=== PATIENT | female | born 1960 | race Caucasian/White ===

== ENCOUNTER 2020-06-16 07:50 | Outpatient (REF) | payer OTHER, SELFPAY ==
--- NOTE | 2020-06-16 | MM_ITS ---
EXAMINATION: MR GUIDED VACUUM-ASSISTED CORE BIOPSY BREAST, LEFT (TWO SITES) MM DIGITAL MAMMOGRAPHY POST BIOPSY, LEFT CLINICAL INFORMATION: Prior history invasive ductal cancer with lobular features left breast 2018 status post lumpectomy at outside institution. Recent high risk MR screening demonstrates 2 findings left breast: new linear ductal non-mass enhancement near benign seroma inferior left breast; and a new 4 mm indistinct mass 10:00 position. Second look diagnostic ultrasound requested. COMPARISON: Second Look ultrasound 05/27/2020, digital breast tomosynthesis 09/12/2019, MR breasts without and with contrast 05/13/2020. TECHNIQUE/PROCEDURE: Informed consent was obtained from the patient after discussion of the benefits, risks, and alternatives to biopsy today. Patient appeared to understand. Gave opportunity for questions. Patient signed consent form. Biopsy is performed under MRI guidance using breast surface coil. Imaging is performed without and with use of 10 mL Gadavist gadolinium contrast. bunkersofa introducer localization system is used with grid. SITE A: LESION: New linear ductal non-mass enhancement near benign seroma inferior left breast. LOCAL ANESTHESIA: 7 mL 1% lidocaine; 11 mL 2% lidocaine with epinephrine. NEEDLE: [employer] 9-gauge vacuum assisted core biopsy device. APPROACH: Lateral medial. CORES: 14. CLIP: TriMark cylinder shaped. SITE B: Separate new biopsy supplies used for second site. LESION: New 4 mm indistinct enhancing focus 10:00 position. LOCAL ANESTHESIA: 7 mL 1% lidocaine; 11 mL 2% lidocaine with epinephrine. NEEDLE: [employer] 9-gauge vacuum assisted core biopsy device. APPROACH: Medial lateral. CORES: 8. CLIP: TriMark dumbell/spool shaped. POSTPROCEDURE UNILATERAL DIGITAL MAMMOGRAM: Mammography is performed using digital mammography in CC and ML views. There are scattered areas of fibroglandular density (ACR BI-RADS breast composition Category b). The biopsy clip markers are in position. There is no gross hematoma. The patient tolerated the procedure well. No immediate complications. Home instructions reviewed with the patient. Final pathology results are pending. IMPRESSION: 1. Status post MRI guided vacuum-assisted core biopsy left breast with clip placement (2 sites biopsied). 2. Final pathology results pending. An addendum report will be issued.
[2020-06-16] MEDS: Lidocaine HCl 1 % MPF 5 ML VIAL SUBCUT ×3 (11:42→11:44)
== END 2020-06-16 07:51 | disposition home or self-care (01) ==
LOC: HO.MRI 07:50
PROVIDERS: Visit Provider Surgery
DX: C50.912 Malignant neoplasm of unspecified site of left female breast (principal); R92.8 Other abnormal and inconclusive findings on diagnostic imaging of breast
CPT/HCPCS: 19085; 19086; 77065; 88305; A4648

== ENCOUNTER 2020-07-29 08:48 | Outpatient (REF) | payer OTHER, SELFPAY ==
[2020-07-29 09:26] LABS: COVID-19 Test Negative (Negative); IDNOW Serial# 55D5AD1C
== END 2020-07-29 08:49 | disposition home or self-care (01) ==
LOC: HO.EMPCOV 08:48
PROVIDERS: PCP Hospitalist; Visit Provider Internal Medicine
DX: Z20.828 Contact with and (suspected) exposure to other viral communicable diseases (principal)
CPT/HCPCS: 87635; C9803

== ENCOUNTER 2020-08-01 08:31 | Outpatient (REF) | payer OTHER, SELFPAY ==
[2020-08-01 08:48] LABS: COVID-19 Test Positive (Negative)
== END 2020-08-01 08:32 | disposition home or self-care (01) ==
LOC: HO.EMPCOV 08:31
PROVIDERS: PCP Family Medicine; Visit Provider Internal Medicine
DX: Z20.828 Contact with and (suspected) exposure to other viral communicable diseases (principal)
CPT/HCPCS: 87635; C9803

== ENCOUNTER 2021-06-17 15:51 | Outpatient (REF) | payer OTHER, SELFPAY ==
--- NOTE | ~2021-06-17 | MM_ITS ---
EXAMINATION: MM SCREENING DIGITAL BREAST TOMOSYNTHESIS, BILATERAL CLINICAL INFORMATION: Prior history left lumpectomy 2018 at outside institution for invasive ductal cancer with lobular features. More recent benign MR-guided left breast biopsy 2 sites 06/16/2020. Due for yearly. COMPARISON: Mammography: 06/16/2020, 09/12/2019, outside mammography 02/03/2018 ([facility]). TECHNIQUE: Digital breast tomosynthesis is performed in both the craniocaudal and mediolateral oblique views along with computer-aided detection (CAD). Synthesized 2D images are generated from the tomosynthesis. FINDINGS: There are scattered areas of fibroglandular density (ACR BI-RADS breast composition Category b). There are post therapy changes on the left with reduced breast size and scarring. There are 2 small oil cysts with rim calcification consistent with fat necrosis within the scar. There are 2 biopsy clip marker corresponding to the MR guided biopsy. The right breast has asymmetric density mid upper breast on MLO view, likely summation artifact. Patient will be recalled to confirm. Remainder of the right breast is unremarkable. MM/MM tomosynthesis screening BI IMPRESSION: 1. Right: Probable summation artifact mid upper breast on MLO view. 2. Left: Post therapy changes. No mammographic evidence of malignancy. ASSESSMENT: BI-RADS 0: Incomplete - Need Additional Imaging Evaluation RECOMMENDATION: 1. Additional views of the right breast (spot MLO, standard ML). 2. Targeted ultrasound if warranted after review of the additional views. 3. Radiology department staff will contact the patient for additional imaging. This patient's information was entered into a reminder system with a target due date for their next mammogram.
== END 2021-06-17 15:52 | disposition home or self-care (01) ==
LOC: HO.MAMMO 15:51
PROVIDERS: PCP Family Medicine; Visit Provider Family Medicine
DX: Z12.31 Encounter for screening mammogram for malignant neoplasm of breast (principal)
CPT/HCPCS: 77063; 77067

== ENCOUNTER → 2024-08-13 08:19 | Outpatient (REF) | payer MEDICARE, SELFPAY ==
--- NOTE | 2024-08-13 | CA_ITS ---
Acquisition Time: 2024-08-13 08:47:55 Total Exercise Time: 00:05:01 Test Indications: ABN EKG Medications: SEE H Protocol: RUDY Max HR: 160 BPM 103% of Pred: 154 BPM Max BP: 164/084 mmHG Max Work Load: 6.4 METS Exercise Stress test with exercise 5 mins 1 sec of Rudy Protocol, achieving 103% MPHR, with reports of moderate SOB, no chest discomfort or palpitations, with isolated PACs and frequent PVCs, with normotensive response to exercise. Without EKG changes meeting criteria for ischemia. In recovery, SOB resolved. Nuclear images pending. Test reviewed with dr. Lin. Note: Test originally ordered as a pharmacological nuclear stress test - Pt is able to exercise on treadmill so test changed to exercise nuclear stress test. Referred By: Vandana Rich Overread By: RADHA BOLDEN
--- NOTE | ~2024-08-13 | NM_ITS ---
EXERCISE MYOCARDIAL PERFUSION STUDY INDICATION: Abnormal EKG TECHNIQUE: The patient was brought in for an exercise perfusion study on 08/13/2024. Patient performed exercise as per Rosales protocol and was injected 30 mCi of sestamibi once target heart rate was achieved. Images were obtained using the SPECT gamma camera interlaced with the gating device. Images were obtained in supine position. Resting perfusion study was performed on 08/15/2024. Patient was administered 30 mCi of sestamibi intravenously at rest. Images were then obtained in supine position. Total DLP 81 mGy-cm. Images were processed with the software and compared side to side in short axis, horizontal long axis and vertical long axis views. FINDINGS: Raw aquisition reviewed. The stress perfusion study showed no significant perfusion abnormality. Both uncontrasted CT attenuation corrected images were reviewed. The gated study shows normal LV systolic function with calculated LVEF of 74%. LV cavity is normal in size. The gated study shows normal wall thickening and contraction of segments. Resting study shows no significant perfusion abnormality. Gating at rest reveals normal wall motion with ejection fraction at 68%. The findings are consistent with no reversible or fixed perfusion abnormality. NM/NM yazmin perf SPECT rest & str IMPRESSION: 1. Myocardial perfusion imaging study shows normal myocardial perfusion. 2. Gated LVEF is 74% during stress and 68% during rest. 3. Transient ischemic dilatation not present. EKG component of the test reported separately. Electronically signed by: Jerry Lin MD 08/16/2024 10:22 AM [facility]
== END ==
LOC: HO.CARD 08:19
PROVIDERS: Visit Provider Family Medicine
DX: R00.2 Palpitations (principal)
CPT/HCPCS: 78452; 93017; 93225; A9500; J0280; J2785

== ENCOUNTER → 2024-08-13 08:47 | Outpatient (BNV) | payer MEDICARE, SELFPAY | PROVIDERS: Visit Provider Nurse Practitioner Family | DX: R94.31 Abnormal electrocardiogram [ECG] [EKG] (principal) | CPT/HCPCS: 78452; 93016; 93018 ==

== ENCOUNTER 2024-09-07 06:37 | Emergency (ER) | payer MEDICARE, SELFPAY ==
--- NOTE | ~2024-09-07 | XR_ITS ---
EXAMINATION: XR CHEST CLINICAL INFORMATION: fever, cough COMPARISON: X-ray dated July 18, 2017. TECHNIQUE: 2 views of the chest were obtained. FINDINGS: Subtle patchy opacity right middle lobe with prominent interstitial lung markings. No pleural effusion. No pneumothorax. No hyperinflation. Cardiomediastinal silhouette is normal in size. Multilevel thoracic and upper lumbar spondylosis. XR/XR chest 2V IMPRESSION: Questionable airspace disease, right middle lobe. Electronically signed by: Catarino Cordova MD 09/07/2024 08:13 AM [facility]
[2024-09-07 06:41] VITALS: BP 119/72; PULSE 81; RESP 18; TEMP 36.6; O2SAT 95; BMI 34.5
[2024-09-07 07:16] LABS: MANUAL DIFF FLAG NO
[2024-09-07 07:17] LABS: Basophils Percent Auto 0.5 % (0-2); Eosinophils Percent Auto 0.1 % (0-4); Hematocrit 41.6 % (37.0-47.0); Hemoglobin 14.5 g/dl (12.0-16.0); Imm Gran Abs Auto 0.03 X10*3/uL (0.00-0.03); Imm Gran Pct Auto 0.4 % (0.0-0.4); Lymphocytes Absolute Auto 1.3 X10*3/uL (1.2-4.9); Lymphocytes Percent Auto 16.6 % (20-40); Mean Corpuscular HGB Conc 34.9 g/dl (31.0-35.0); Mean Corpuscular Hemoglobin 31.5 pg (27.0-33.0); Mean Corpuscular Volume 90.4 fL (80.0-98.0); Mean Platelet Volume 8.6 fL (9.4-12.3); Monocytes Absolute Auto 1.1 X10*3/uL (0.1-1.2); Monocytes Percent Auto 14.5 % (2-11); Neutrophils Absolute Auto 5.3 x10*3/uL (2.0-8.3); Neutrophils Percent Auto 67.9 % (45-73); Platelet Count 212 X10*3/uL (160-400); Red Cell Distribution Width 13.3 % (11.0-16.0); White Blood Count 7.8 X10*3/uL (4.8-10.8)
--- NOTE | 2024-09-07 07:33 | ED_ITS ---
HPI - General Adult General Chief complaint: General Medical Stated complaint: feels dehydrated Time Seen by Provider: 09/07/24 07:33 History of Present Illness ED Provider: Maribel DENTON narrative: The patient is a 64-year-old female who says that she has felt unwell for about 5 days. She started to feel ill earlier this week on Tuesday. She says that she developed a headache and felt congested. On Tuesday she had a temperature of 101 degrees. She also had a bit of a sore throat and a 1 point she thought she had a swollen lymph node on the right side of her neck. She has also been coughing a great deal. She also has had trouble taking oral intake. She feels that if she eats anything it is nauseated and vomits afterwards. She does not have abdominal pain. She has had a small amount of diarrhea. Yesterday she went to an urgent care center where she was tested for strep. She says that the rapid strep was positive. She was prescribed azithromycin (she has a penicillin allergy). She took a 1st dose last night thinking she would feel better this morning. However this morning she felt worse and felt weak and nauseated and as if she might be very dehydrated and so she came to the emergency room. The patient says that she was surprised that her rapid strep was positive yesterday since sore throat was not her primary problem. Mostly she felt ill with a headache and also body aches. Related Data Previous Rx's ?Medication ?Instructions ?Recorded levothyroxine 137 mcg tablet 137 mcg PO DAILY #90 tabs 04/24/21 (Synthroid) Allergies Allergy/AdvReac Type Severity Reaction Status Date / Time adhesive tape [ADHESIVE TAPE] Allergy Unknown RAW Verified 09/07/24 06:41 IRRITATED SKIN Penicillins [PENICILLINS] Allergy Unknown HIVES,RASH Verified 09/07/24 06:41 Review of Systems 2 Review of Systems: Yes all other systems are reviewed and are negative [facility] Social History Social History Advance Directives Date on File: 04/15/22 Physical Exam ED Vital Signs: Vital Signs - 24 hr 09/07/24 06:41 09/07/24 08:25 09/07/24 09:27 Temperature 97.9 F 97.3 F 98 F Pulse Rate 81 70 78 Respiratory Rate 18 14 17 Blood Pressure 119/72 129/78 122/71 Pulse Oximetry 95 92 98 Oxygen Delivery Method Room Air Room Air BMI result Body Mass Index 34.5 Const Other: The patient is a 64-year-old woman who was awake and alert. She does not appear in obvious distress or seem obviously acutely ill. HENMT Other: There is some slight erythema to the posterior pharynx but no obvious soft tissue swelling of any kind in the posterior pharynx. No exudate. No significant tonsillar tissue. No trismus. The face is symmetrical. Eyes General: appearance normal, both eyes and all related structures Neck Other: No appreciable lymphadenopathy. The neck is entirely supple. Resp Other: The patient was coughing a great deal but no definite crackles or wheezes. No increased work of breathing. Cardio Rate: regular rate Rhythm: regular rhythm Heart sounds: S1 normal heart sound present and S2 normal heart sound present GI Other: Abdomen is soft and nontender Skin Other: Skin is dry and unremarkable Neuro Other: The patient is awake and alert with a normal mental status and an entirely supple neck. Her demeanor is nontoxic. Cranial nerves are grossly intact. She moves her extremities symmetrically. Extrem Other: No calf tenderness or asymmetry Medications Administered Discontinued Medications Generic Name Dose Route Start Last Admin Trade Name Freq PRN Reason Stop Dose Admin Sodium Chloride 1,000 mls @ 999 mls/hr 09/07/24 08:00 09/07/24 08:12 Ns IV 09/07/24 09:00 999 mls/hr .Q1H1M GERRI Administration Ketorolac Tromethamine 10 mg 09/07/24 07:52 09/07/24 08:14 Ketorolac Tromethamine 15 Mg/Ml Vial IVPUSH 09/07/24 07:53 10 mg ONCE ONE Administration Ondansetron HCl 4 mg 09/07/24 07:49 09/07/24 08:13 Ondansetron Hcl 4 Mg/2 Ml Vial IVPUSH 09/07/24 07:50 4 mg ONCE ONE Administration Medical Decision Making Medical Decision Making MDM Narrative: The patient is a 64-year-old woman who presents with 5 days of illness characterized by headache, body aches, and fever. She has a benign clinical appearance. She reports testing positive with a rapid strep test at an urgent care center yesterday. She was started on azithromycin but felt worse today and so came to the emergency room. Today she is testing positive for influenza A. I think her symptoms are consistent with an influenza syndrome coughing a fair amount. A chest x-ray was done that had an equivocal finding of a possible small pneumonia. The patient was treated symptomatically with IV fluids, ondansetron, and ketorolac. I told her that she has tested positive for the flu which I think is the primary issue with her current illness. She tested negative for strep today which I think also seems clinically consistent. Given the small finding of a questionable pneumonia on x-ray I think continuing the azithromycin is reasonable. Given that she has had symptoms for 5 days I do not think that oseltamivir would be of much benefit. She looks well enough for outpatient management. Lab Data 09/07/24 07:12 09/07/24 07:12 Labs: Lab Results 09/07/24 09/07/24 Range/Units 07:12 07:50 WBC 7.8 (4.8-10.8) X10*3/uL RBC 4.60 (4.20-5.50) X10*6/uL Hgb 14.5 (12.0-16.0) g/dl Hct 41.6 (37.0-47.0) % MCV 90.4 (80.0-98.0) fL MCH 31.5 (27.0-33.0) pg MCHC 34.9 (31.0-35.0) g/dl RDW 13.3 (11.0-16.0) % Plt Count 212 (160-400) X10*3/uL MPV 8.6 L (9.4-12.3) fL Immature Gran % (Auto) 0.4 (0.0-0.4) % Neut % (Auto) 67.9 (45-73) % Lymph % (Auto) 16.6 L (20-40) % Armstrong % (Auto) 14.5 H (2-11) % Eos % (Auto) 0.1 (0-4) % Baso % (Auto) 0.5 (0-2) % Lymph # (Auto) 1.3 (1.2-4.9) X10*3/uL Armstrong # (Auto) 1.1 (0.1-1.2) X10*3/uL Eos # (Auto) 0.0 (0.0-0.4) X10*3/uL Baso # (Auto) 0.0 (0.0-0.2) X10*3/uL Abs Immat Gran (auto) 0.03 (0.00-0.03) X10*3/uL Absolute Neuts (auto) 5.3 (2.0-8.3) x10*3/uL Absolute Nucleated RBC 0.000 (0.0-0.012) X10*3/uL Nucleated RBC % (auto) 0.0 (0.0-0.2) /100WBC Sodium 139 (135-145) mmol/L Potassium 4.9 (3.3-5.1) mmol/L Chloride 104 (96-108) mmol/L Carbon Dioxide 25 (22-29) mmol/L Anion Gap 15 (12-20) BUN 12 (9-16) mg/dL Creatinine 0.80 (0.5-1.4) mg/dL Estim Creat Clear Calc 83.9 Estimated GFR > 60 Random Glucose 87 (60-115) mg/dL Calcium 9.1 (8.4-10.2) mg/dL Total Bilirubin 0.4 (0.0-1.0) mg/dL AST 39 H (5-31) U/L ALT 28 (0-31) U/L Alkaline Phosphatase 60 (39-117) U/L Total Protein 6.9 (6.5-8.0) g/dL Albumin 3.8 (3.5-5.0) g/dL Lipase 12 (8-78) U/L Influenza Type A (PCR) POSITIVE A (Negative) Influenza Type B (PCR) NEGATIVE (Negative) RSV RNA Qual (PCR) NEGATIVE (Negative) SARS-CoV-2 RNA (RT-PCR) NEGATIVE (Negative) S. pyogenes GrpA JUN Negative (Negative) Discharge Plan Discharge Clinical Impression: Influenza Patient Disposition: Home, Self-Care Instructions: Influenza (ED) Additional Instructions: You have tested positive for the flu today. Specifically of tested positive for influenza A. Your strep test today is negative. I suspect all of your symptoms are consistent with an influenza infection. Influenza can make a person feel very bad. Your chest x-ray has an equivocal reading for a possible very small pneumonia. I therefore think it would be reasonable for you to continue the azithromycin you were started on yesterday. Please use acetaminophen (Tylenol) and ibuprofen as needed for discomfort. You may use the ondansetron you were prescribed yesterday as needed for any nausea. Plan on feeling unwell for a few more days. Ultimately you should get better. Drink lot of fluids. Stay in touch with your regular doctor for additional advice as needed. If at any point you feel significantly worse return to the emergency room.. Prescriptions: No Action levothyroxine [Synthroid] 137 mcg tablet 137 mcg PO DAILY Qty: 90 0RF Referrals: Vandana Rich MD [Primary Care Provider] - (Influenza) Interventions: ED Discharge Assessment Last Done: 09/07/24 09:27 Discharge Date/Time: 09/07/24 09:28 Print Language: Swiss
[2024-09-07 07:39] LABS: Alanine Aminotransferase 28 U/L (0-31); Albumin Level 3.8 g/dL (3.5-5.0); Alkaline Phosphatase 60 U/L (39-117); Anion Gap 15 (12-20); Aspartate Amino Transferase 39 U/L (5-31); Bilirubin Total 0.4 mg/dL (0.0-1.0); Blood Urea Nitrogen 12 mg/dL (9-16); Calcium 9.1 mg/dL (8.4-10.2); Carbon Dioxide 25 mmol/L (22-29); Chloride 104 mmol/L (96-108); Creatinine Clr Calc Pharmacy 83.9; Estimated Glomerular Filt Rate > 60; Glucose Random 87 mg/dL (60-115); Lipase 12 U/L (8-78); Potassium 4.9 mmol/L (3.3-5.1); Sodium 139 mmol/L (135-145); Total Protein 6.9 g/dL (6.5-8.0)
[2024-09-07 08:10] LABS: IDNOW Serial# 58CA691E; Strep A Nucleic Acid Negative (Negative)
[2024-09-07] MEDS: 0.9 % Sodium Chloride 1,000 ML 999 ML IV (08:12)
[2024-09-07] MEDS: ondansetron HCL 4 MG/2 ML VIAL IVPUSH (08:13)
[2024-09-07] MEDS: Ketorolac Tromethamine 15 MG/ML VIAL 10 MG IVPUSH (08:14)
[2024-09-07 08:25] VITALS: BP 129/78; PULSE 70; RESP 14; TEMP 36.3; O2SAT 92
[2024-09-07 08:31] LABS: Influenza A PCR POSITIVE (Negative); Influenza B PCR NEGATIVE (Negative); Resp Syncy Virus RNA Qual PCR NEGATIVE (Negative); SARS COV2 PCR INHOUSE NEGATIVE (Negative)
[2024-09-07 09:27] VITALS: BP 122/71; PULSE 78; RESP 17; TEMP 36.6; O2SAT 98
== END 2024-09-07 09:28 | disposition home or self-care (01) ==
PROVIDERS: Emergency Provider Emergency Medicine; PCP Family Medicine
DX: J10.1 Influenza due to other identified influenza virus with other respiratory manifestations (principal); E86.0 Dehydration; R51.9 Headache, unspecified; M79.10 Myalgia, unspecified site; R05.9 Cough, unspecified; Z79.899 Other long term (current) drug therapy; Z03.818 Encounter for observation for suspected exposure to other biological agents ruled out
CPT/HCPCS: 0241U; 36415; 71046; 80053; 83690; 85025; 87651; 99284; J1885; J2405

== ENCOUNTER → 2024-09-07 07:46 | Outpatient (BNV) | payer MEDICARE, SELFPAY | PROVIDERS: Emergency Provider Emergency Medicine; PCP Family Medicine; Visit Provider Radiology Diagnostic Radiology | DX: R50.9 Fever, unspecified (principal); R05.9 Cough, unspecified | CPT/HCPCS: 71046 ==

== ENCOUNTER 2025-03-28 13:57 | Outpatient (AMB) | payer MEDICARE, SELFPAY ==
[2025-03-28 13:58] VITALS: BP 120/80; PULSE 72; BMI 36.3
--- NOTE | 2025-03-28 13:58 | A.OFFVIS_ITS ---
Vital Signs 03/28/25 13:58 Height 5 ft 7 in Weight 231 lb 7.766 oz BMI 36.3 BP 120/80 Blood Pressure Location Lt brachial Position Sitting Pulse 72 Intake Visit Reasons: FEED WEIGHER/Goncero/Abn/Ekg 12-31-24 r/s 2x Intake Note: New patient abnormal ekg with ekg today c/o skipped beat Um Specialist Required: No Allergies adhesive tape (ADHESIVE TAPE) Allergy (Unknown, Verified 09/07/24 06:41) RAW IRRITATED SKIN Penicillins (PENICILLINS) Allergy (Unknown, Verified 09/07/24 06:41) HIVES,RASH Medication List - Last Reconciled 03/28/25 by Sameer Sandhu MD levothyroxine 112 mcg PO DAILY lisinopril mg PO DAILY HPI Comments Details: Thank you for referring Jodi in cardiology consultation today for symptoms of palpitations. Patient is a pleasant 64-year-old female who says for about a year she is having symptoms of skipped heartbeats/fluttering in his chest which are more frequent happy about 3 to 4 times a week. The symptoms are noticeable but they are not affecting the quality of life at this point time. She says she has big need to adjust to them. She underwent a Holter monitor in his early part of a year which shows rare PACs and PVCs. She had no symptoms while she was wearing the Holter monitor. She also had a calcium score which was 0 however she underwent a vasodilating myocardial perfusion imaging which was within normal limits. She has not had an echocardiogram. She denies any symptoms of exertional chest pain or shortness of breath although has limited exercise capacity. She has been trying aggressive lifestyle modification with weight loss and regular physical activity. She comes for evaluation for these palpitations. She denies any prolonged irregular heartbeat. No symptoms of sleep apnea. Denies any lightheadedness, syncope. [facility] Social History Advance Directives Date on File: 04/15/22 Review of Systems Const Denies chills, Denies fatigue, Denies fever(s), Denies frequent falls, Denies weakness, Denies weight gain and Denies weight loss Eyes Denies loss of vision ENT Denies dizziness Card Denies chest pain, Denies leg edema, Denies lightheadedness, Denies palpitations, Denies dyspnea, Denies dyspnea on exertion, Denies orthopnea and Denies other (loss of consciousness) Resp Denies cough, Denies dyspnea, Denies dyspnea on exertion and Denies wheezing GI Denies hematochezia and Denies change in stool character Denies urinary frequency and Denies dysuria Musc Denies abnormal gait, Denies muscle weakness, Denies numbness, Denies radiating pain into limb and Denies tingling Skin/Breast Denies nail changes and Denies rash Neuro Denies abnormal gait, Denies dizziness, Denies frequent falls, Denies loss of vision, Denies memory loss, Denies numbness, Denies tingling and Denies weakness Psych Denies depression and Denies memory loss Endo Denies fatigue and Denies palpitations Leonel/Lymph Reports easy bruising and Reports other (anemia) Aller/Immun Denies wheezing Physical Exam Vital Signs: Last Vital Signs Pulse 72 03/28/25 13:58 BP 120/80 03/28/25 13:58 BMI result Body Mass Index 36.3 Const General: cooperative, comfortable, no acute distress, alert and awake Nutritional Appearance: obese Orientation/consciousness: patient oriented x3 Limitations: no limitations HEENT Head: Yes normocephalic and Yes atraumatic Neck Neck: Yes trachea midline, Yes supple and Yes no JVD Resp Effort & Inspection: normal respiratory effort Auscultation: clear to auscultation bilaterally Cardio Jugular venous distension: no JVD Palpation: normal PMI Rate: regular rate Rhythm: regular rhythm Heart sounds: S1 normal heart sound present, S2 normal heart sound present, no click, no gallops, no murmurs and no rubs GI Auscultation: normal bowel sounds Skin General skin exam: no rashes or lesions noted Neuro General: patient oriented x3 and no focal motor deficits Extrem General: Yes no clubbing, cyanosis or edema Psych Appearance: grossly normal Office Procedures EKG Details: EKG shows normal sinus rhythm with PVCs with poor R-wave progression most likely due to lead placement and body habitus 17918-[id number], Complete Assessment & Plan Assessment & Plan (1) PVC (premature ventricular contraction): Code(s): I49.3 - Ventricular premature depolarization Category: Medical Plan: Patient was symptomatic PVCs but not bothered and affecting her lifestyle. She had a myocardial perfusion imaging which was within normal limits with a 0 calcium score. She will need an echocardiogram to assess for cardiac structure and function. This will be scheduled in near future. If this is completed within normal limits, with the current frequency and minimal symptoms would suggest non pharmacologic treatment of her PVCs. This was discussed with her. Pathophysiology of PVCs were discussed. We discussed about stress mitigation strategies such as meditation/yoga to reduce frequency of PVCs. Also suggest to avoid stimulants. We also discussed about overall 0 calcium score with her current lipid levels does not need any pharmacotherapy. We discussed about continued aggressive lifestyle modification. Consider non pharmacologic therapy such as garlic/red yeast rice yeast to lower LDL. Advise follow-up lipid panel in 6 months time after intense lifestyle modification. Continue participate in weight loss program was discussed. Will follow up in the clinic in 1 year's time on her request. Thank you for allowing me to partake in her care Orders: Orders CA echo transthoracic complete Today I49.3 - Ventricular premature depolarization Coding Level of Care Code New Pt Level 4 (46560) Complex EM visit Add On G2211 Diagnoses PVC (premature ventricular contraction) I49.3 CPT Codes EKG - CPT: 32228-[id number], Complete ([id number])
--- OUTSIDE RECORDS SUMMARY | 2025-03-28 14:07 | XMS_ITS | Encounter Summary ---
Author Organization [facility] Address [address] [place] [address] Phone Care Team Providers Care Construction Materials Tester Name Role Phone Baylee Chew MD, MPH Primary Care Provid er Pcp, Unknown Primary Care Provider Vandana Chandler MD Primary Care Provider [phone] Encounter Details Date Type Department Care Team (Late st Contact Info) Description 09/01/2018 Ancillary Orders [facility],Outside Imaging [address] [place] [address] System, Provider Not In, PhD [address] [address] Social History Tobacco Use Types Packs/Day Years Used Date Smoking Tobacco: Never Assessed Comments Unknown Sex and Gender Information Value Date Recorded Sex Assigned at Not on file Legal Sex Female 11:12 AM EST Gender Identity Not on file Sexual Orientation Not on file documented as of this encounter Plan of Treatment Not on file documented as of this encounter Results * DXA Outside (No Interpretation) (03/29/2018 12:00 AM EDT) Narrative SYSTEMGENERATED, DOCUMENTATION - 09/01/2018 9:18 AM EST This study is for PACS storage only and not for interpretation. us Provider Not In System PhD IMG OUTSIDE IMAGING W /OUT INTERPRETATION Final Result documented in this encounter Visit Diagnoses Not on filedocumented in this encounter Care Teams Construction Materials Tester Relationship Specialty Start Date End Date Baylee Chew MD, MPH [address] [address] [email or web address] PCP - General Family Medicine 08/25/18 04/12/21 Pcp, Unknown PCP - General 04/13/21 01/14/25 Vandana Rich MD [address] [place] [id number] [email or web address] PCP - General Family Medicine 01/15/25 documented as of this encounter Additional Source Comments The information contained in this document represents components of the legal health record. It is not the complete legal health record.[facility]
== END 2025-03-28 14:27 | disposition home or self-care (01) ==
LOC: HO.HCS 13:58
PROVIDERS: PCP Family Medicine; Visit Provider Internal Medicine Cardiovascular Disease
DX: I49.3 Ventricular premature depolarization (principal)
CPT/HCPCS: 93010; 99204; G2211

== ENCOUNTER → 2025-03-28 13:57 | Outpatient (BNVA) | payer MEDICARE, SELFPAY | PROVIDERS: PCP Family Medicine; Visit Provider Internal Medicine Cardiovascular Disease | DX: I49.3 Ventricular premature depolarization (principal); R94.31 Abnormal electrocardiogram [ECG] [EKG] | CPT/HCPCS: 93005; 99202 ==

== ENCOUNTER → 2025-04-26 07:54 | Outpatient (REF) | payer MEDICARE, SELFPAY ==
--- NOTE | 2025-04-26 07:56 | CA_ITS ---
Transthoracic Echocardiogram Patient (Last, First, Middle): Malika Bear, Gender: F Date of : 1960 Age: 64 Procedure Date: 04/26/2025 Procedure Type: Transthoracic Echocardiogram Location: OP Height: 170.18 cm Weight: 104.78 kg BSA: 2.15 m2 Heart Rate: bpm BP: 120 / 78 mmHg Intellectual Property Manager: TO/RC Referring MD: Sameer Sandhu MD Symptoms: I49.3 - Ventricular premature depolarization Study Quality: Adequate ECG Rhythm: Sinus Conclusions: - The left ventricular systolic function is normal. The calculated ejection fraction is 57% by biplane method. - No obvious valvular pathology seen on this study. Findings Left Ventricle Normal left ventricular cavity size. There is normal left ventricular wall thickness. The left ventricular systolic function is normal. The calculated ejection fraction is 57% by biplane method. There is no evidence of regional wall motion abnormalities. Diastolic function is normal for age. Right Ventricle Normal right ventricular cavity size and systolic function. Atria Both atria are normal in size. Aortic Valve There is a normal trileaflet aortic valve. There is no aortic valve stenosis. There is trace (trivial) aortic valve regurgitation. Mitral Valve The mitral valve appears normal. There is no mitral valve regurgitation. There is no mitral valve stenosis. Pulmonic Valve The pulmonic valve is likely normal. Tricuspid Valve Normal tricuspid valve structure. There is trace tricuspid valve regurgitation. There is no evidence of pulmonary hypertension. Great Vessels The asc aorta is normal in size. Venous The inferior vena cava is normal in size and collapses greater than 50% with inspiration. Pericardium/Pleural There is no evidence of pericardial effusion. Prior Study Comparison No prior study available for comparison. Recommendations, Care & Conclusions No obvious valvular pathology seen on this study. Measurements 2D Linear Measurements IVSd: 0.95 0.6-0.9/0.6-1.0 cm LVIDd: 3.96 3.9-5.3/4.2-5.9 cm LVIDd Index: 1.84 2.4-3.2/2.2-3.1 cm/m2 LVIDs: 2.80 2.0-3.6 cm LVPWd: 0.86 0.7-1.1 cm LA Diam: 2.80 2.7-3.8/3.0-4.0 cm LAIDs Index: 1.30 1.5-2.3 cm/m2 LV Mass: 135.20 67-162/88-224 g LV Mass Index: 62.88 43-95/49-115 g/m2 LVOT Diam: 2.20 3.0+(-)1.3 cm 2D Systolic Function EF 4C: 63.30 >55% EF 2C: 51.80 >55% EF BiP: 57.20 >55% Mitral Valve MV Pk E: 0.67 MV PK A: 0.97 MV Decel Time: 158.00 E/A: 0.70 E'Lateral: 8.49 E'Medial: 5.22 E/E' Med: 12.70 E/E' Lat: 7.80 PHT: 46.00 MVA PHT: 4.78 Decel Grand: 4.20 Aortic Valve AoV Pk Nicholas: 1.10 AoV Mn Nicholas: 0.83 AoV VTI: 0.24 AoV Pk Grad: 5.00 Aov Mn Grad: 3.00 PATTY Cont.VTI: 3.34 LVOT LVOT Pk Nicholas: 1.09 LVOT Mn Nicholas: 0.76 LVOT VTI: 0.21 LVOT Pk Grad: 5.00 LVOT Mn Grad: 3.00 LVOT Diam: 2.20 LVOT Area: 3.80 Diastolic Function MV Pk E: 0.67 MV Pk A: 0.97 E/A: 0.70 E'Medial: 5.22 E/E' Med: 12.70 E' Laterial: 8.49 E/E' Lat: 7.80 Right Ventricle TAPSE (mm): 27.40 TVS' Nicholas: 15.90 Tricuspid Valve TR Pk Nicholas: 1.89 TR Pk Grad: 14.00 RA Press: 3.00 RVSP: 17.00 Great Vessels Aorta Sinus of Valsalva: 3.20 2.0-3.5 cm Ao Asc: 3.20 2.1-3.4 cm Pulmonary Veins Pulm Vein S/D 1.00 Pulmonary Valve PV Pk Nicholas: 1.13 Peak PV Grad: 5.00 Updated in Other Vendor System with Status of Final Jerry Lin MD electronically signed on 04/27/2025 1:25:37 PM with status of Final
--- OUTSIDE RECORDS SUMMARY | 2025-04-26 07:56 | XMS_ITS | Encounter Summary ---
Author Organization [facility] Address [address] [place] [address] Phone Care Team Providers Care Dog License Officer Supervisor Name Role Phone Baylee Chew MD, MPH Primary Care Provid er Pcp, Unknown Primary Care Provider Vandana Chandler MD Primary Care Provider [phone] Encounter Details Date Type Department Care Team (Late st Contact Info) Description 09/01/2018 Ancillary Orders [facility],Outside Imaging [address] [place] [address] System, Provider Not In, PhD [address] [address] Social History Tobacco Use Types Packs/Day Years Used Date Smoking Tobacco: Never Assessed Comments Unknown Sex and Gender Information Value Date Recorded Sex Assigned at Not on file Legal Sex Female 11:12 AM EST Gender Identity Not on file Sexual Orientation Not on file documented as of this encounter Plan of Treatment Not on file documented as of this encounter Results * US Breast Outside (No Interpretation) (04/14/2018 12:00 AM EDT) Narrative SYSTEMGENERATED, DOCUMENTATION - 09/01/2018 9:16 AM EST This study is for PACS storage only and not for interpretation. us Provider Not In System PhD IMG OUTSIDE IMAGING W /OUT INTERPRETATION Final Result documented in this encounter Visit Diagnoses Not on filedocumented in this encounter Care Teams Dog License Officer Supervisor Relationship Specialty Start Date End Date Baylee Chew MD, MPH [address] [address] [email or web address] PCP - General Family Medicine 08/25/18 04/12/21 Pcp, Unknown PCP - General 04/13/21 01/14/25 Vandana Rich MD [address] [place] [phone] [email or web address] PCP - General Family Medicine 01/15/25 documented as of this encounter Additional Source Comments The information contained in this document represents components of the legal health record. It is not the complete legal health record.[facility]
--- OUTSIDE RECORDS SUMMARY | 2025-04-26 07:56 | XMS_ITS | Encounter Summary ---
Author Organization [facility] Address [address] [place] [address] Phone Care Team Providers Care Functional Tester Typewriters Name Role Phone Baylee Chew MD, MPH Primary Care Provid er Pcp, Unknown Primary Care Provider Vandana Chandler MD Primary Care Provider [phone] Encounter Details Date Type Department Care Team (Late st Contact Info) Description 09/01/2018 Ancillary Orders [facility],Outside Imaging [address] [place] [address] System, Provider Not In, PhD [address] [address] Social History Tobacco Use Types Packs/Day Years [...] on filedocumented in this encounter Care Teams Functional Tester Typewriters Relationship Specialty Start Date End Date Baylee Chew MD, MPH [address] [address] [email or web address] PCP - General Family Medicine 08/25/18 04/12/21 Pcp, Unknown PCP - General 04/13/21 01/14/25 Vandana Rich MD [address] [place] [phone] [email or web address] PCP - General Family Medicine 01/15/25 documented as of this encounter Additional Source Comments The information contained in this document represents components of the legal health record. It is not the complete legal health record.[facility]
--- OUTSIDE RECORDS SUMMARY | 2025-04-26 07:56 | XMS_ITS | Encounter Summary ---
Author Organization [facility] Address [address] [place] [address] Phone Care Team Providers Care Shank Threader Name Role Phone Baylee Chew MD, MPH Primary Care Provid er Pcp, Unknown Primary Care Provider Vandana Chandler MD Primary Care Provider [phone] Encounter Details Date Type Department Care Team (Late st Contact Info) Description 09/01/2018 Ancillary Orders [facility],Outside Imaging [address] [place] [address] System, Provider Not In, PhD [address] [address] Social History Tobacco Use Types Packs/Day Years [...] Results * US Breast Outside (No Interpretation) (03/23/2018 12:00 AM EDT) Narrative SYSTEMGENERATED, DOCUMENTATION - 09/01/2018 9:19 AM EST This study is for PACS storage only and not for interpretation. us Provider Not In System PhD IMG OUTSIDE IMAGING W /OUT INTERPRETATION Final Result documented in this encounter Visit Diagnoses Not on filedocumented in this encounter Care Teams Shank Threader Relationship Specialty Start Date End Date Baylee Chew MD, MPH [address] [address] [email or web address] PCP - General Family Medicine 08/25/18 04/12/21 Pcp, Unknown PCP - General 04/13/21 01/14/25 Vandana Rich MD [address] [place] [id number] [email or web address] PCP - General Family Medicine 01/15/25 documented as of this encounter Additional Source Comments The information contained in this document represents components of the legal health record. It is not the complete legal health record.[facility]
--- OUTSIDE RECORDS SUMMARY | 2025-04-26 07:56 | XMS_ITS | Encounter Summary ---
Author Organization [facility] Address [address] [place] [address] Phone Care Team Providers Care Catering Associate Name Role Phone Baylee Chew MD, MPH Primary Care Provid er Pcp, Unknown Primary Care Provider Vandana Chandler MD Primary Care Provider [phone] Encounter Details Date Type Department Care Team (Late st Contact Info) Description 09/01/2018 Ancillary Orders [facility],Outside Imaging [address] [place] [address] System, Provider Not In, PhD [address] [address] Social History Tobacco Use Types Packs/Day Years Used Date Smoking Tobacco: Never Assessed Comments Unknown Sex and Gender Information Value Date Recorded Sex Assigned at Not on file Legal Sex Female 11:12 AM EST Gender Identity Not on file Sexual Orientation Not on file documented as of this encounter Plan of Treatment Not on file documented as of this encounter Results * Mammogram Outside (No Interpretation) (04/28/2018 12:00 AM EDT) Narrative SYSTEMGENERATED, DOCUMENTATION - 09/01/2018 9:20 AM EST This study is for PACS storage only and not for interpretation. us Provider Not In System PhD IMG OUTSIDE IMAGING W /OUT INTERPRETATION Final Result documented in this encounter Visit Diagnoses Not on filedocumented in this encounter Care Teams Catering Associate Relationship Specialty Start Date End Date Baylee Chew MD, MPH [address] [address] [email or web address] PCP - General Family Medicine 08/25/18 04/12/21 Pcp, Unknown PCP - General 04/13/21 01/14/25 Vandana Rich MD [address] [place] [id number] [email or web address] PCP - General Family Medicine 01/15/25 documented as of this encounter Additional Source Comments The information contained in this document represents components of the legal health record. It is not the complete legal health record.[facility]
--- OUTSIDE RECORDS SUMMARY | 2025-04-26 07:56 | XMS_ITS | Encounter Summary ---
Author Organization [facility] Address [address] [place] [address] Phone Care Team Providers Care Product Safety Compliance Leader Name Role Phone Baylee Chew MD, MPH Primary Care Provid er Pcp, Unknown Primary Care Provider Vandana Chandler MD Primary Care Provider [phone] Encounter Details Date Type Department Care Team (Late st Contact Info) Description 09/01/2018 Ancillary Orders [facility],Outside Imaging [address] [place] [address] System, Provider Not In, PhD [address] [address] Social History Tobacco Use Types Packs/Day Years [...] Results * Mammogram Outside (No Interpretation) (04/28/2018 12:15 AM EDT) Narrative SYSTEMGENERATED, DOCUMENTATION - 09/01/2018 9:21 AM EST This study is for PACS storage only and not for interpretation. us Provider Not In System PhD IMG OUTSIDE IMAGING W /OUT INTERPRETATION Final Result documented in this encounter Visit Diagnoses Not on filedocumented in this encounter Care Teams Product Safety Compliance Leader Relationship Specialty Start Date End Date Baylee Chew MD, MPH [address] [address] [email or web address] PCP - General Family Medicine 08/25/18 04/12/21 Pcp, Unknown PCP - General 04/13/21 01/14/25 Vandana Rich MD [address] [place] [phone] [email or web address] PCP - General Family Medicine 01/15/25 documented as of this encounter Additional Source Comments The information contained in this document represents components of the legal health record. It is not the complete legal health record.[facility]
== END ==
LOC: HO.CARD 07:54
PROVIDERS: PCP Internal Medicine; Visit Provider Internal Medicine Cardiovascular Disease
DX: I49.3 Ventricular premature depolarization (principal)
CPT/HCPCS: 93306

== ENCOUNTER → 2025-04-26 07:56 | Outpatient (BNV) | payer MEDICARE, SELFPAY | PROVIDERS: PCP Internal Medicine; Visit Provider Internal Medicine | DX: I35.1 Nonrheumatic aortic (valve) insufficiency (principal) | CPT/HCPCS: 93306 ==

== ENCOUNTER 2025-06-07 14:11 | Outpatient (AMB) | payer MEDICARE, SELFPAY ==
--- NOTE | 2025-06-07 14:15 | A.OFFPC_ITS ---
Vital Signs 06/07/25 14:17 Height 5 ft 5.16 in Weight 235 lb 4 oz BMI 39.0 BP 116/86 Blood Pressure Location Lt brachial Position Sitting Respiration 14 Pulse 81 Pulse Source Pulse Oximeter Temp 98.3 F Temp Source Oral Pulse Oximetry (%) 99 Oxygen Delivery Method Room Air Intake Visit Reasons: CPE Intake Note: New patient visit Allergies adhesive tape (ADHESIVE TAPE) Allergy (Unknown, Verified 09/07/24 06:41) RAW IRRITATED SKIN Penicillins (PENICILLINS) Allergy (Unknown, Verified 09/07/24 06:41) HIVES,RASH Tobacco use date assessed: 06/07/25 Fall risk assessment: No Falls in past year Last assessed Fall Risk: 06/07/25 Dental Screening Dental Screen Date: 06/07/25 Did you have a dental visit in the last 12 months?: Yes Did you have a dental problem in the last 6 months where you did not have access to dental care?: No Was dental information given to patient?: Patient has dentist HPI HPI Comments History of Present Illness Details The patient is a 64 year old female with a past medical history of htn, hld, left breast cancer, hypothyroid presenting to [facility] care. Transferring from [facility] CV: Follows with cardiology. On lisinopril, red yeast rice. Lab in December. Cholesterol elevated. Echo ordered. Previous calcium score 0. Hypothyroid: on levothyroxine. TSH wnl December. Heme/onc: follows with [facility]. Seeing them once annually. Follows with [facility]-Dr Salomon. Dysplactic moles, BCC removed forehead Increased reflux. Taking more Tums. Has taken omeprazole but not consistently. Reports history of varicose veins-painful. Has tried compression stockings in the past. Remote history of vein stripping. She would like to see vascular again Does not see gynecology anymore. Colonoscopy: 08/2019 ROS CONSTITUTIONAL: Denies weight loss, fever and chills. HEENT: Denies changes in vision and hearing. RESPIRATORY: Denies SOB and cough. CV: Denies palpitations and CP GI: Denies abdominal pain, nausea, vomiting and diarrhea. : Denies dysuria and urinary frequency. MSK: Denies new myalgia and joint pain. SKIN: Denies rash and pruritus. NEUROLOGICAL: Denies headache PSYCHIATRIC: Denies recent changes in mood. PHYSICAL EXAM: GENERAL: Alert and oriented x 3. NAD EYES: EOMI. Anicteric. HENT: Moist mucous membranes. No scleral icterus. No cervical lymphadenopathy. LUNGS: Clear to auscultation bilaterally. CARDIOVASCULAR: Regular rate and rhythm. No murmur. No JVD. ABDOMEN: Soft, non-tender +bs EXTREMITIES: Non pitting edema. Varicosities Non-tender. SKIN: No rashes NEUROLOGIC: No focal neurological deficits. CN II-XII grossly intact PSYCHIATRIC: Cooperative. 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 1. Little interest or pleasure in doing things: not at all 2. Feeling down, depressed, or hopeless: not at all 3. Trouble falling or staying asleep, or sleeping too much: more than half the days 4. Feeling tired or having little energy: not at all 5. Poor appetite or overeating: not at all 6. Feeling bad about yourself - or that you are a failure or have let yourself or your family down: not at all 7. Trouble concentrating on things, such as reading the newspaper or watching television: not at all 8. Moving or speaking so slowly that other people could have noticed. Or the opposite - being so fidgety or restless that you have been moving around a lot more than usual: not at all 9. Thoughts that you would be better off or of hurting yourself in some way: not at all Total score: 2 Depression Screening Interpretation: Negative Depression Screening Done: Yes 81763 - PHQ-9 Billing: Yes Source: Developed by Drs. Jim Cuellar, Glendy Otto, Bran Christian and colleagues, with an educational azam from [employer]. Thrive Questionnaire Date Thrive assessed: 05/31/25 I am a: Patient What is your living situation today?: I have a steady place to live Within the past 12 months, did the food you bought not last and you didn't have the money to get more?: Never true Within the past 12 months, did you worry whether your food would run out before you got money to buy more?: Never true Do you have trouble paying for medicines?: No Do you have trouble getting transportation to medical appointments?: No Do you have trouble paying your heating and electricity bill?: No Do you have trouble taking care of your child, family member or friend?: No Do you have trouble with day-to-day activities such as bathing, preparing meals, shopping, managing finances, etc.?: No Are you currently unemployed and looking for a job?: No Are you interested in more education?: I choose not to answer this question Please select the resources that you would like help with: None Currently or been in a relationship where the following occur: No concerns reported THRIVE Score: 0 AUDIT C Alcohol Use Questionnaire (AUDIT-C) 1. How often do you have a drink containing alcohol?: 2-4 times a month 2. How many drinks containing alcohol do you have on a typical day when you are drinking?: 1 or 2 3. How often do you have six or more drinks on one occasion?: Never Total Score: 2 ALEXANDER-7 AMB Questionnaire ALEXANDER-7 Feeling nervous, anxious, or on edge: 2 = More than half the days Not being able to stop or control worryin = Several days Worrying too much about different things: 1 = Several days Trouble relaxin = Several days Being so restless that it is hard to sit still: 0 = Not at all Becoming easily annoyed or irritable: 0 = Not at all Feeling afraid as if something awful might happen: 0 = Not at all Total ALEXANDER-7 score (0-4 normal; 5-9 mild; 10-14 moderate; 15-21 severe): 5 Source: Developed by Drs. Jim Cuellar, Glendy Otto, Bran Christian and colleagues, with an educational azam from [employer]. Physical exam (Primary Care) Vital Signs: Last Vital Signs Temp 98.3 F 06/07/25 14:17 Pulse 81 06/07/25 14:17 Resp 14 06/07/25 14:17 BP 116/86 06/07/25 14:17 Pulse Ox 99 06/07/25 14:17 Oxygen Delivery Method Room Air 06/07/25 14:17 BMI result Body Mass Index 39.0 Tobacco/Smoking Status: Tobacco use Status Tobacco use date assessed 06/07/25 06/07/25 14:24 Patient Tobacco Use Status Never used Tobacco 06/07/25 14:24 e-Cigarette/Vaping Use Never Used 06/07/25 14:24 PHQ-9: PHQ-9 Score PHQ-9: Total score 2 06/07/25 14:17 Depression Screening Interpretation: Negative Thrive Assessment: Date of Thrive Assessment Date Thrive assessed 05/31/25 06/07/25 14:17 Currently or been in a relationship where the following occur: No concerns reported Coding Level of Care Code New Pt Level 4 (06763) Complex EM visit Add On G2211 Diagnoses Establishing care with new doctor, encounter for Z76.89 Varicose veins of bilateral lower extremities with other complications I83.893 Hyperlipidemia, unspecified hyperlipidemia type E78.5 Hyperlipidemia type: unspecified Acquired hypothyroidism E03.9 Additional Codes PHQ-9 - 05044 - PHQ-9 Billing: Yes ([id number]) Assessment & Plan Assessment & Plan (1) Establishing care with new doctor, encounter for: Code(s): Z76.89 - Persons encountering health services in other specified circumstances (2) Varicose veins of bilateral lower extremities with other complications: Code(s): I83.893 - Varicose veins of bilateral lower extremities with other complications Category: Medical (3) Hyperlipidemia: Code(s): E78.5 - Hyperlipidemia, unspecified Category: Medical Qualifiers: Hyperlipidemia type: unspecified Qualified Code(s): E78.5 - Hyperlipidemia, unspecified (4) Acquired hypothyroidism: Code(s): E03.9 - Hypothyroidism, unspecified Category: Medical Plan 64 year old female to establish care Past medical, surgical, social reviewed painful varicose veins-venous insufficiency. referral to vascular GERD-Take omeprazole consistently for one month. referral GI. She may be due for colonoscopy Hypothyroid-TSH wnl December. recheck 6 months Return for CPE Orders: Orders Complete Blood Count Auto Diff 6 Months E03.9 - Hypothyroidism, unspecified, E78.5 - Hyperlipidemia, unspecified, I49.3 - Ventricular premature depolarization, Z13.0 - Encounter for screening for diseases of the blood and blood-forming organs and certain disorders involving the immune mechanism, Z13.228 - Encounter for screening for other metabolic disorders Lipid Panel 6 Months E03.9 - Hypothyroidism, unspecified, E78.5 - Hyperlipidemia, unspecified, I49.3 - Ventricular premature depolarization, Z13.0 - Encounter for screening for diseases of the blood and blood-forming organs and certain disorders involving the immune mechanism, Z13.228 - Encounter for screening for other metabolic disorders TSH reflex Free T4 6 Months E03.9 - Hypothyroidism, unspecified, E78.5 - Hyperlipidemia, unspecified, I49.3 - Ventricular premature depolarization, Z13.0 - Encounter for screening for diseases of the blood and blood-forming organs and certain disorders involving the immune mechanism, Z13.228 - Encounter for screening for other metabolic disorders IRON PROFILE Today I83.893 - Varicose veins of bilateral lower extremities with other complications, M79.604 - Pain in right leg, M79.605 - Pain in left leg Magnesium Today I83.893 - Varicose veins of bilateral lower extremities with other complications, M79.604 - Pain in right leg, M79.605 - Pain in left leg Comprehensive Met. Panel 6 Months E03.9 - Hypothyroidism, unspecified, E78.5 - Hyperlipidemia, unspecified, I49.3 - Ventricular premature depolarization, Z13.0 - Encounter for screening for diseases of the blood and blood-forming organs and certain disorders involving the immune mechanism, Z13.228 - Encounter for screening for other metabolic disorders Hemoglobin A1c 6 Months E03.9 - Hypothyroidism, unspecified, E78.5 - Hyperlipidemia, unspecified, I49.3 - Ventricular premature depolarization, Z13.0 - Encounter for screening for diseases of the blood and blood-forming organs and certain disorders involving the immune mechanism, Z13.228 - Encounter for screening for other metabolic disorders US venous insuf bilat Today I83.893 - Varicose veins of bilateral lower extre mities with other complications, M79.604 - Pain in right leg, M79.605 - Pain in left leg Referrals Gastroenterology Referral K21.9 - Gastro-esophageal reflux disease without esophagitis Vascular Surgery Referral I83.893 - Varicose veins of bilateral lower extremities with other complications, M79.604 - Pain in right leg, M79.605 - Pain in left leg Medications: New omeprazole 20 mg PO DAILY 30 caps 0RF
[2025-06-07 14:17] VITALS: BP 116/86; PULSE 81; RESP 14; TEMP 36.8; O2SAT 99; BMI 39.0
== END 2025-06-07 14:51 | disposition home or self-care (01) ==
LOC: HO.HMCFM 14:12
PROVIDERS: PCP Family Medicine; Visit Provider Internal Medicine
DX: Z76.89 Persons encountering health services in other specified circumstances (principal); I83.893 Varicose veins of bilateral lower extremities with other complications; E78.5 Hyperlipidemia, unspecified; E03.9 Hypothyroidism, unspecified

== ENCOUNTER → 2025-06-07 14:11 | Outpatient (BNVA) | payer MEDICARE, SELFPAY | PROVIDERS: PCP Family Medicine; Visit Provider Internal Medicine | DX: Z76.89 Persons encountering health services in other specified circumstances (principal); I83.893 Varicose veins of bilateral lower extremities with other complications; E78.5 Hyperlipidemia, unspecified; E03.9 Hypothyroidism, unspecified; I10 Essential (primary) hypertension; Z79.899 Other long term (current) drug therapy; Z13.31 Encounter for screening for depression | CPT/HCPCS: 96127; 99202 ==